=== PATIENT | male | born 1950 | race Caucasian/White ===

== ENCOUNTER 2018-05-09 07:54 | Emergency (ER) | payer BC ==
--- OUTSIDE RECORDS SUMMARY | 2018-05-09 08:16 | XMS REPORT | Continuity of Care Document ---
:1950 External Reference #:[id number] Author Name Marline Krause Care Team Providers Name Role Phone Rush Alexandra DO Care Team Information [employer] Driver Unavailable Rush Alexandra, Primary Care Physician Unavailable Payers Date Identification Numbers Payment Provider Subscriber Policy Number: [id number] BS CNY Darron Sotomayor PayID: [id number] [address] [address] [place] [address] Advance Directives Description No Information Available Problems Description No Information Family History Date Family Member(s) Observation Comments First Brother Diabetes Social History Type Date Description Comments Sex Unknown Tobacco Use Start: Unknown End: Used To Smoke Cigarettes But Unknown Quit. Smoking Status Reviewed: 03/15/18 Used To Smoke Cigarettes But Quit. ETOH Use Quit Using Alcohol. Tobacco Use Start: Unknown End: Patient is a former smoker Unknown Recreational Drug Use Never Used Drugs Allergies, Adverse Reactions, Alerts Date Description Reaction Status Severity Comments 12/25/2015 Aleve Active Medications Medication Date Status Form Strength Qnty SIG Indications Ordering Provider Pravastatin / Active Tablets 40mg 1 by mouth Unknown Sodium 0000 every day Lisinopril / Active Tablets 40mg 1/2 by Unknown 0000 mouth every day Aspirin /00/ Active Tablets DR 81mg 1 by mouth Unknown 0000 mwf, tolerates well Multivitamins 00/00/ Active Capsules Unknown 0000 Glucosamine 00/00/ Active Capsules Unknown Chondroitin 0000 1500 Complex Acetaminophen 00/ Active Tablets ER 650mg 2 by mouth Unknown ER 0000 every 8 hours as needed for pain Biotin 00/00/ Active Tablets 5000mcg Unknown 0000 Vitamin C 00// Active Chewtabs Unknown 0000 Probiotic 00/00/ Active Capsules Unknown 0000 Medications Administered in Office Medication Date Status Form Strength Qnty SIG Indications Ordering Provider Depomedrol 01/29/2 Administered Injection Jameson Hyon 40md/1cc Meseret Wallace MD Immunizations Description No Information Available Vital Signs Date Vital Result Comment 05/08/2018 1:02pm Weight 222.00 lb Height 73 inches 6'1" BMI (Body Mass Index) 29.3 kg/m2 BP Systolic 124 mmHg BP Diastolic 73 mmHg Heart Rate 77 /min O2 % BldC Oximetry 96 % Body Temperature 97.9 F Pain Level 0 04/24/2018 8:05am Weight 225.00 lb Height 73 inches 6'1" BMI (Body Mass Index) 29.7 kg/m2 BP Systolic 170 mmHg BP Diastolic 76 mmHg Heart Rate 66 /min O2 % BldC Oximetry 97 % Body Temperature 97.9 F Pain Level 0 04/10/2018 8:42am Weight 227.00 lb Height 73 inches 6'1" BMI (Body Mass Index) 29.9 kg/m2 BP Systolic 149 mmHg BP Diastolic 74 mmHg Heart Rate 78 /min O2 % BldC Oximetry 97 % Body Temperature 97.9 F Pain Level 3 04/03/2018 10:46am Weight 225.00 lb Height 73 inches 6'1" BMI (Body Mass Index) 29.7 kg/m2 BP Systolic 147 mmHg BP Diastolic 76 mmHg Heart Rate 79 /min O2 % BldC Oximetry 95 % Body Temperature 97.6 F Pain Level 0 03/15/2018 2:29pm Weight 223.00 lb Height 73 inches 6'1" BMI (Body Mass Index) 29.4 kg/m2 BP Systolic 124 mmHg BP Diastolic 74 mmHg Heart Rate 78 /min O2 % BldC Oximetry 97 % Body Temperature 97.1 F Pain Level 4 09/28/2017 1:39pm Weight 213.00 lb Height 73 inches 6'1" BMI (Body Mass Index) 28.1 kg/m2 BP Systolic 115 mmHg BP Diastolic 70 mmHg Heart Rate 88 /min O2 % BldC Oximetry 96 % Body Temperature 97.6 F Pain Level 5 09/19/2017 9:50am Weight 218.00 lb Height 73 inches 6'1" BMI (Body Mass Index) 28.8 kg/m2 BP Systolic 130 mmHg BP Diastolic 73 mmHg Heart Rate 63 /min O2 % BldC Oximetry 96 % Body Temperature 97.5 F Pain Level 8 pt states pain comes and goes 12/25/2015 8:43am Weight 254.00 lb Height 73 inches 6'1" BMI (Body Mass Index) 33.5 kg/m2 BP Systolic 128 mmHg BP Diastolic 82 mmHg Heart Rate 64 /min O2 % BldC Oximetry 96 % Body Temperature 98.7 F Pain Level 0 Results Description No Information Available Procedures Date Code Description Status 04/10/2018 01529 Injection, Single Or Multiple trigger points one or two Completed muscles 03/26/2018 84199 Repair Hernia Umbilical > 5 Yrs, Reducible Completed 09/22/2017 95212 Repair Initial Inguinal Hernia/ Age 5 Or Over/Reducible Completed Encounters Type Date Location Provider Dx Diagnosis Office Visit 04/24/2018 Main Office Jameson Wallace MD Z09 Encntr for f/u exam 8:00a aft trtmt for cond oth than malig neoplm Office Visit 04/10/2018 [facility] Office Jameson Wallace MD M65.352 Trigger finger, left 8:30a little finger Office Visit 03/15/2018 [facility] Office Delmar Radford MD K42.9 Umbilical hernia 2:30p without obstruction or gangrene Office Visit 09/19/2017 Main Office Delmar Radford MD K42.9 Umbilical hernia 9:30a without obstruction or gangrene K40.90 Unil inguinal hernia, w/o obst or gangr, not spcf as recur Office Visit 12/25/2015 8:30a [facility] Office Delmar Radford MD K42.9 Umbilical hernia without obstruction or gangrene I83.93 Asymptomatic varicose veins of bilateral lower extremities Plan of Treatment No Information Available
--- OUTSIDE RECORDS SUMMARY | 2018-05-09 08:16 | XMS REPORT | Continuity of Care Document ---
:1950 External Reference #:[id number] Author Name Nannette Marinelli Care Team Providers Name Role Phone Rush Alexandra DO Care Team Information [employer] Unavailable Rush Alexandra, Primary Care Physician Unavailable Payers Type Date Identification Numbers Payment Provider Subscriber Policy Number: [id number] CNY Darron Sotomayor PayID: [id number] [address] [address] [place] [address] Advance Directives Description No Information Available Problems Description No Information Family History Date Family Member(s) Problem(s) Comments First Brother Diabetes Social History Type [...] Strength Qnty SIG Indications Ordering Provider Pravastatin 00/00/ Active Tablets 40mg 1 by mouth Unknown Sodium 0000 every day Lisinopril 00/00/ Active Tablets 40mg 1/2 by Unknown 0000 mouth every day Aspirin 00/00/ Active Tablets DR 81mg 1 by mouth Unknown 0000 mwf, tolerates well Multivitamins 00/00/ Active Capsules Unknown 0000 Glucosamine 00/00/ Active Capsules Unknown Chondroitin 0000 1500 Complex Acetaminophen 00/00/ Active Tablets ER 650mg 2 by mouth Unknown ER 0000 every 8 hours as needed for pain Biotin 00/00/ Active Tablets 5000mcg Unknown 0000 Vitamin C 00/00/ Active Chewtabs Unknown 0000 Probiotic 00/00/ Active Capsules Unknown 0000 Immunizations Description No Information Available Vital Signs Date Vital Result Comment 04/10/2018 8:42am Weight 227.00 lb Height 73 [...] Information Available Procedures Date Code Description Status 09/22/2017 82021 Repair Initial Inguinal Hernia/ Age 5 Or Over/Reducible Completed Encounters Type Date Location Provider Dx Diagnosis Office Visit 04/03/2018 Main Office Delmar Radford MD K42.9 Umbilical hernia 10:30a without obstruction or gangrene Office Visit 03/15/2018 Main Office Delmar Radford [...] of bilateral lower extremities Plan of Treatment Future Appointment(s):05/08/2018 1:00 pm - Delmar Radford MD at Main [id number] - Delmar Radford MDK42.9 Umbilical hernia without obstruction or gangreneComments:He is doing well without any problem. He drove himself to the office today without any problem. Hehas been wearing abdominal binder daily. Three dried alcohol swabs in umbilicus were removed and packed with dry gauze piece to absorbe any sweat. Tegedrem plastic dressing is intact, and I will leave it there as long as it stays. He has been taking a shower daily.He has been doing well and advisedto keep his weight at BMI of 27 and avoid any heavy lifting and abdominal straining as much as possible to minimize recurrence. He has a triger finger or Dupuytren's contracture with pain and tenderness at M-P joint level of left 5th finger. Advised him to see Dr. Wallace for a surgical evaluation.RTO one month.
--- OUTSIDE RECORDS SUMMARY | 2018-05-09 08:16 | XMS REPORT | Continuity of Care Document ---
:1950 External Reference #:[id number] Author Name Marline Krause Care Team Providers Name Role Phone Rush Alexandra DO Care Team Information [employer] Architect Unavailable Rush Alexandra, Primary Care Physician Unavailable Payers Date Identification Numbers Payment Provider Subscriber Policy Number: [id number] BS CNY Darron Sotomayor PayID: [id number] [address] [address] [place] [address] Advance Directives Description No Information Available Problems [...] Available Vital Signs Date Vital Result Comment 04/24/2018 8:05am Weight 225.00 lb Height 73 [...] Available Procedures Date Code Description Status 04/10/2018 51096 Injection, Single Or Multiple trigger points one or two Completed muscles 09/22/2017 86413 Repair Initial Inguinal Hernia/ Age 5 Or Over/Reducible Completed Encounters Type Date Location Provider Dx Diagnosis Office Visit 04/10/2018 Main Office Jameson Wallace MD M65.352 Trigger finger, left 8:30a little finger Office Visit 04/03/2018 Main Office Delmar Radford [...] pm - Delmar Radford MD at Main [id number] - Jameson Wallace, MDM65.352 Trigger finger, left little fingerComments:1) The assessment was informed to him.2) Options for management discussed , including trial of localcortisone injection or surgical release. 3) After discussion, trial of local injection was decided and performed .Follow up:RTO in 2 weeks for F-U.Miscellaneous:Procedure : Injection of Depomedrol 40 mg ( 1 ml ) and 1% lidocaine 0.5 ml , left little finger , for trigger fnger. With the patient in supine position , after prep with Betadine solution , using sterile technique, 40 mg of Depomedrol and 0.5 ml of 1 % lidocaine was injected into and around the areaof tendon sheath at M-P level of palm. He tolerated well.
[2018-05-09 08:20] VITALS: BP 154/59
--- NOTE | 2018-05-09 08:40 | ED ---
Upper Extremity Pain - HPI Summary HPI Summary: 67 yr old male with left shoulder pain. He fell yesterday on uneven road shoulder in snow and landed on arm to break fall. He has pain in the lateral left shoulder. Slight limit to his normal ability to do overhead activities with that arm. Pain is moderate. 10 yrs ago he had pain in left shoulder with overhead activities but that resolved. Denies other injuries. - History of Current Complaint Chief Complaint: UCUpperExtremity Stated Complaint: SP FALL-LT SHOULDER INJURY Time Seen by Provider: 05/09/18 08:17 - Allergies/Home Medications Allergies/Adverse Reactions: Allergies Allergy/AdvReac Type Severity Reaction Status Date / Time naproxen [From Aleve] Allergy Hives Verified 05/09/18 08:20 Home Medications: Home Medications Acetaminophen [Tylenol Arthritis] 1,300 mg PO ONCE PRN 05/09/18 [History Confirmed 05/09/18] Pravastatin Sodium 40 mg PO DAILY 05/09/18 [History Confirmed 05/09/18] PMH/Surg Hx/FS Hx/Imm Hx Endocrine/Hematology History: Comment Only: Hx Diabetes - monitoring with diet changes Cardiovascular History: Reports: Hx Hypertension - Surgical History Surgery Procedure, Year, and Place: CYSTECTOMY FROM BACK. HERNIA REPAIR X2 Infectious Disease History: No Infectious Disease History: Denies: Traveled Outside the [place] in Last 30 Days - Family History Known Family History: Positive: None - Social History Occupation: Employed Part-time Alcohol Use: None Substance Use Type: Reports: None Smoking Status (MU): Former Smoker Review of Systems Constitutional: Negative Positive: Other - left shoulder pain All Other Systems Reviewed And Are Negative: Yes Physical Exam Triage Information Reviewed: Yes Vital Signs On Initial Exam: Initial Vitals Temp Pulse Resp BP Pulse Ox 98.0 F 102 18 154/59 96 05/09/18 08:16 05/09/18 08:16 05/09/18 08:16 05/09/18 08:16 05/09/18 08:16 Vital Signs Reviewed: Yes Appearance: Positive: Well-Appearing, No Pain Distress Skin: Positive: Warm, Skin Color Reflects Adequate Perfusion Head/Face: Positive: Normal Head/Face Inspection Eyes: Positive: EOMI Neck: Positive: Nontender Respiratory/Lung Sounds: Positive: Clear to Auscultation, Breath Sounds Present Cardiovascular: Positive: RRR. Negative: Murmur Abdomen Description: Negative: Distended Musculoskeletal: Positive: Other - left arm with out deformity. Left shoulder no bruise, no STS, no redness. He has mild tenderness over the lateral deltoid. No tenderness over AC joint. No tenderness over scapula. He has 120 abduction actively left shoulder. 170 forward flexion left shoulder Neurological: Positive: Sensory/Motor Intact, Alert, Oriented to Person Place, Time, CN Intact II-III, Normal Gait, Speech Normal Psychiatric: Positive: Normal - [place] Coma Scale Best Eye Response: 4 - Spontaneous Best Motor Response: 6 - Obeys Commands Best Verbal Response: 5 - Oriented Coma Scale Total: 15 Diagnostics - Vital Signs Vital Signs Temp Pulse Resp BP Pulse Ox 05/09/18 08:16 98.0 F 102 18 154/59 96 - Laboratory Lab Statement: Any lab studies that have been ordered have been reviewed, and results considered in the medical decision making process. - Radiology left shoulder Radiology Interpretation Completed By: Radiologist - Supraspinatus tendon calcification Course/Dx - Course Course Of Treatment: 67 yr old male with left shoulder injury. Suprspinatus tendonitis. FU with Ortho - Diagnoses Provider Diagnoses: Supraspinatus tendinitis, Rotator cuff injury, Hypertension Discharge - Sign-Out/Discharge Documenting (check all that apply): Patient Departure All imaging exams completed and their final reports reviewed: Yes - Discharge Plan Condition: Good Disposition: HOME Patient Education Materials: Rotator Cuff Tendinitis (ED), Rotator Cuff Injury (ED), Hypertension (ED) Referrals: Frank Alexandra DO [Primary Care Provider] - 2 Days - Billing Disposition and Condition Condition: GOOD Disposition: Home
== END 2018-05-09 09:18 | disposition home or self-care (01) ==
LOC: UCCORT 07:54
DX: S46.002A Unspecified injury of muscle(s) and tendon(s) of the rotator cuff of left shoulder, initial encounter (principal); M75.82 Other shoulder lesions, left shoulder; I10 Essential (primary) hypertension; E11.9 Type 2 diabetes mellitus without complications; Z87.891 Personal history of nicotine dependence; Z88.8 Allergy status to other drugs, medicaments and biological substances; W19.XXXA Unspecified fall, initial encounter; Y92.410 Unspecified street and highway as the place of occurrence of the external cause
CPT/HCPCS: 99201; G0463